=== PATIENT | female | born 1940 | race Caucasian/White ===

== ENCOUNTER → 2019-08-11 | Outpatient (CLI) | payer MEDICARE, OTHER ==
[~2019-08-11] MED LIST: ALPRAZOLAM0.25 MG PO; AMBIEN10 MG PO; BETAPACE AF80 MG PO; CRESTOR20 MG PO; LATANOPROST2.5 ML PO; LOSARTAN-HCTZ1 EAC1 PO; MAGNESIUM250 M1 PO; OS-CAL ULTRA T1 EACH PO; PAROXETINE HCL20 MG PO; PREMARIN0.9 MG PO; REQUIP3 MG PO; XARELTO20 MG PO; [UNRECOGNIZED DRUG - OTHER] PO
--- NOTE | 2019-08-11 13:49 | Diagnostic Imaging Report ---
EXAMINATION: CHEST 2 VIEWS INDICATION: Hypertension, CHF COMPARISON: None FINDINGS: LINES/TUBES:Left chest pacer. LUNGS:The lungs are well-inflated. No focal consolidation or pulmonary edema. PLEURA:No pleural effusion or pneumothorax. MEDIASTINUM:The cardiomediastinal silhouette appears normal in size and shape. BONES/SOFT TISSUES:No acute osseous injury. Partially visualized left shoulder arthroplasty hardware. ABDOMEN:No free air under the diaphragm. IMPRESSION: No focal pneumonia or pulmonary edema. Signed by: Patricia Toro MD on 08/11/2019 1:45 PM
== END ==
LOC: RAD 13:05
PROVIDERS: ATTEND Internal Medicine Cardiovascular Disease
DX: I11.0 Hypertensive heart disease with heart failure (principal); J44.1 Chronic obstructive pulmonary disease with (acute) exacerbation; Z95.0 Presence of cardiac pacemaker
CPT/HCPCS: 71046

== ENCOUNTER 2020-03-04 13:22 | Inpatient (IN) | payer MEDICARE, OTHER ==
[~2020-03-04] VITALS: Ht 172.7 cm; Wt 83.9 kg
[2020-03-04] MEDS ORDERED: SODIUM CHLORIDE 0.9% 1000ML 1,000 ML IV STA (13:24)
--- NOTE | 2020-03-04 13:32 | Emergency Department Note ---
History of Present Illnes History of Present Illness Chief Complaint: Abdominal Complaints History of Present Illness This is a 80 year old female arrived to the ED with diarrhea for several days. Patient denies any nausea or vomiting, no abdominal pain. Patient denies being on antibiotics recently. 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 Any updates have been documented here. Past Medical History Recent Fever: No Clinical Suspicion of Infectio: No New/Unexplained Change in Ment: No Past Medical History: Hypertension, CHF, A-Fib, Migraines, Anxiety, Depression, Hyperlipedemia Other Medical History: PACEMAKER IBS HEARING LOSS Past Surgical History: Pacer/AICD, Knee Replacement Other Surgery: PACEMAKER LEFT SHOULDER SURGERY KNEE SURGERY Social History Smoking Cessation: Never Smoker Alcohol Use: None Any Illegal Drug Use: No TB Exposure/Symptoms: No Physically hurt or threatened: No Other Last Tetanus: UTD Review of Systems Review of Systems Constitutional: Reports no symptoms EENTM: Reports no symptoms Cardiovascular: Reports no symptoms Respiratory: Reports no symptoms Gastrointestinal: Reports no symptoms, Reports as per HPI, Reports diarrhea Genitourinary: Reports no symptoms Musculoskeletal: Reports no symptoms Integumentary: Reports no symptoms Neurological: Reports no symptoms Psychological: Reports no symptoms Endocrine: Reports no symptoms Hematological/Lymphatic: Reports no symptoms Physical Exam Related Data Allergies: Coded Allergies: No Known Drug Allergies (Verified Allergy, Unknown, 02/26/09) Triage Vital Signs Vital Signs Date Time Temp Pulse Resp B/P (MAP) Pulse Ox O2 Delivery O2 Flow Rate FiO2 03/04/20 13:23 63 14 157/71 100 Room Air Vital signs reviewed: Yes Physical Exam CONSTITUTIONAL Constitutional: Present well-developed, Present well-nourished HENT HENT: Present normocephalic, Present atraumatic, Present oropharynx clear/moist, Present nose normal HENT L/R: Present left ext ear normal, Present right ext ear normal EYES Eyes: Reports PERRL, Reports conjunctivae normal NECK Neck: Present ROM normal PULMONARY Pulmonary: Present effort normal, Present breath sounds normal CARDIOVASCULAR Cardiovascular: Present regular rhythm, Present heart sounds normal, Present capillary refill normal, Present normal rate GASTROINTESTINAL Abdominal: Present soft, Present nontender, Present bowel sounds normal GENITOURINARY Genitourinary: Present exam deferred SKIN Skin: Present warm, Present dry MUSCULOSKELETAL Musculoskeletal: Present ROM normal NEUROLOGICAL Neurological: Present alert, Present oriented x 3, Present no gross motor or sensory deficits PSYCHOLOGICAL Psychological: Present mood/affect normal, Present judgement normal Results Laboratory Lab results reviewed: Yes Laboratory comments Severe Sepsis Time: 1551 Colitis 1. Source (time: 1551 ) Colitis on CT AP 2. SIRS (time: 1353 ) WBC 20k 3. Organ Dysfunction (time: 1438) Cr 2.07 Interventions: Blood cultures collected Lactic acid collected Broad Spectrum antibiotics Zosyn given Lactic acid #1: 1.5 Lactic acid #2: not indicated Imaging Imaging results reviewed: Yes Impressions IMPRESSION: Wall thickening and adjacent inflammatory change identified involving the long segment of descending and sigmoid colon. Findings are concerning for a colitis of likely infectious etiology. No evidence for bowel obstruction, perforation, or abscess formation. Signed by: Dr. Lino Reddy MD on 03/04/2020 3:51 PM Procedures 12 Lead ECG Interpretation ECG Interpretation : ECG: ECG 1 Prior ECG tracings: reviewed Rhythm: paced Critical Care Time Total Critical Care Time (min): 35 Critical care time exclusive o: separately billable procedures Critcal care necessary due to: sepsis Assessment & Plan Medical Decision Making MDM 80-year-old female arrives to the ED with complaints of diarrhea, WBC Count elevated, CT scan consistent with colitis. Patient got 1 dose of Zosyn admitted to the ED for IV antibiotics, fluid resuscitation and GI consult. Assessment & Plan Final Impression: (1) Severe sepsis (2) Colitis Depart Disposition: ADMITTED Last Vital Signs Date Time Temp Pulse Resp B/P (MAP) Pulse Ox O2 Delivery O2 Flow Rate FiO2 03/04/20 13:23 63 14 157/71 100 Room Air Home Meds Reported Medications Ca Carbonate/Vit C/Vit D3/E/Mn (OS-ERIN ULTRA TABLET) 1 Each Tablet, 600 MG PO DAILY 06/28/13 [[facility]] No Conflict Check, 1 PO DAILY 06/28/13 Estrogens, Conjugated (PREMARIN) 0.9 Mg Tablet, 0.9 MG PO DAILY 06/28/13 Alprazolam (ALPRAZOLAM) 0.25 Mg Tablet, 0.25 MG PO PRN 06/28/13 Paroxetine Hcl (PAROXETINE HCL) 20 Mg Tablet, 20 MG PO QOD 06/28/13 Zolpidem Tartrate (AMBIEN) 10 Mg Tablet, 10 MG PO QHS 06/28/13 Magnesium (MAGNESIUM) 250 Mg Tablet, 250 MG PO DAILY 06/28/13 Rivaroxaban (XARELTO) 20 Mg Tablet, 20 MG PO QHS 06/28/13 Sotalol Hcl (BETAPACE AF) 80 Mg Tablet, 80 MG PO BID 06/28/13 Losartan/Hydrochlorothiazide (LOSARTAN-HCTZ 100-25 MG TAB) 1 Each Tablet, 100 MG PO DAILY 06/28/13 Ropinirole Hcl (REQUIP) 3 Mg Tablet, 3 MG PO QHS 06/28/13 Rosuvastatin Calcium (CRESTOR) 20 Mg Tablet, 20 MG PO 06/28/13 Latanoprost (LATANOPROST) 2.5 Ml Drops, 2.5 MG PO QHS 06/28/13 Medications in the ED Sodium Chloride 1,000 ml @ 150 mls/hr Q6H40M STAT IV ; Start 03/04/20 at 13:24; Stop 03/04/20 at 20:03 MARISSA GALEANA DO Mar 04, 2020 13:32
[2020-03-04 13:47] LABS: BASOPHILS # (AUTO) 0.1 (0.0-0.1); BASOPHILS % 0.3 % (0.0-1.0); EOSINOPHILS # (AUTO) 0.1 (0.0-0.4); EOSINOPHILS % 0.4 % (0.0-6.0); HEMATOCRIT 31.4 % (34.2-44.1); HEMOGLOBIN 10.5 g/dL (12.0-16.0); LYMPHOCYTES # (AUTO) 0.7 (1.0-3.2); LYMPHOCYTES % 3.6 % (18.0-39.1); MEAN CORPUSCULAR HEMOGLOBIN 28.5 pg (28-32); MEAN CORPUSCULAR HGB CONC 33.4 g/dL (31-35); MEAN CORPUSCULAR VOLUME 85.1 fL (81-99); MONOCYTES # (AUTO) 0.9 (0.2-0.8); MONOCYTES % 4.6 % (4.4-11.3); NEUTROPHILS # (AUTO) 18.1 (2.1-6.9); NEUTROPHILS % 90.3 % (38.7-80.0); PLATELET COUNT 268 x10e3/uL (140-360); RED BLOOD COUNT 3.69 x10e6/uL (3.6-5.1); RED CELL DISTRIBUTION WIDTH 17.3 % (11.7-14.4)
[2020-03-04] MEDS ORDERED: PIPER-TAZ 3.375 GM 50 ML IV STA (14:06)
[2020-03-04 14:25] LABS: ALBUMIN 2.4 g/dL (3.5-5.0); ALBUMIN/GLOBULIN RATIO 0.5 (0.8-2.0); ANION GAP 20.2 mmol/L (8-16); CALCIUM 8.7 mg/dL (8.4-10.2); CREATININE, SERUM 2.07 mg/dL (0.57-1.11); POTASSIUM 3.2 mmol/L (3.5-5.1)
[2020-03-04 14:33] LABS: CREATINE KINASE MB 2.3 ng/mL (0-5.0)
[2020-03-04 14:51] LABS: BILIRUBIN,URINE NEGATIVE (NEGATIVE); CLARITY,URINE SL CLOUDY (CLEAR); COLOR,URINE STRAW (YELLOW); KETONES,URINE NEGATIVE (NEGATIVE); LEUKOCYTE ESTERASE ,URINE NEGATIVE (NEGATIVE); NITRITE,URINE NEGATIVE (NEGATIVE); PROTEIN,URINE DIPSTICK NEGATIVE (NEGATIVE); URINE UROBILINOGEN 0.2 mg/dL (0.2 - 1)
[2020-03-04 15:10] LABS: BACTERIA,URINE FEW /HPF; RBC,URINE 0-5 /HPF (0-5)
[2020-03-04 15:11] LABS: AMORPHOUS SEDIMENT,URINE MODERATE (FEW)
--- NOTE | 2020-03-04 15:43 | Diagnostic Imaging Report ---
EXAM: CHEST SINGLE (PORTABLE) DATE: 03/04/2020 3:09 PM INDICATION: Abdominal pain COMPARISON: 08/11/2019 FINDINGS: Left-sided pacing device identified in stable position. The trachea is midline. There is minimal left basilar opacity suggestive of atelectasis. The lungs are otherwise expanded without evidence for focal consolidation, pneumothorax, or significant pleural effusion. The cardiomediastinal silhouette is stable in appearance. Partially visualized left shoulder arthroplasty hardware again noted. No acute osseous abnormality is identified. IMPRESSION: No acute cardio prominent process identified. Signed by: Dr. Lino Reddy MD on 03/04/2020 3:40 PM
--- NOTE | 2020-03-04 15:54 | Diagnostic Imaging Report ---
CT of the abdomen and pelvis, without contrast. History: Abdominal pain, diarrhea. Comparison: None available. Technique: Multidetector CT scanning of the abdomen and pelvis was performed from the level of the lung bases to the inferior pubic rami without the contrast material. Coronal and sagittal multiplanar reformations were obtained. RADIATION DOSE: Total DLP: 723.32 mGy*cm Dose modulation, iterative reconstruction, and/or weight based adjustment of the mA/kV was utilized to reduce the radiation dose to as low as reasonably achievable. FINDINGS: Partially visualized pacing leads noted. The visualized intrathoracic contents are otherwise grossly unremarkable. The liver is normal in size and attenuation on this noncontrast enhanced examination. Granulomatous calcifications noted within the hepatic dome. The gallbladder is unremarkable. There is no biliary ductal dilatation. The stomach, spleen, pancreas, and bilateral adrenal glands demonstrate unremarkable noncontrast appearance. Incidentally noted is a splenule adjacent to the spleen. The kidneys are normal in size and location with bilateral areas of cortical scarring present. There is no evidence for nephrolithiasis or hydronephrosis. No ureteral stone or dilatation is appreciated. Phleboliths are noted within the pelvis. The partially distended urinary bladder demonstrates no significant abnormalities. The uterus is surgically absent. No abnormal adnexal masses are identified. The abdominal aorta is normal course and caliber with mild/moderate atherosclerotic calcifications. The IVC is normal in caliber. Please note evaluation the bowel is limited without the use of enteric contrast material. There is a long segment of wall thickening and adjacent fat stranding involving the descending and sigmoid colon. The visualized loops of small bowel and remaining large bowel demonstrate no evidence for obstruction. The appendix is not definitively visualized but there is no evidence for inflammation within its expected location the right lower quadrant. There is no ascites or intraperitoneal free air. No abnormally enlarged lymph nodes are identified within the abdomen or pelvis. There are multilevel degenerative changes of the lumbar spine, most prominent at L4-L5. There is no evidence for acute fracture or destructive process. The extraperitoneal soft tissues are unremarkable. IMPRESSION: Wall thickening and adjacent inflammatory change identified involving the long segment of descending and sigmoid colon. Findings are concerning for a colitis of likely infectious etiology. No evidence for bowel obstruction, perforation, or abscess formation. Signed by: Dr. Lino Reddy MD on 03/04/2020 3:51 PM
[2020-03-04 16:22] LABS: ABG HCO3 22 mmol/L (22-26); ABG PCO2 28 mmHg (35-45); ABG PH 7.51 (7.35-7.45); ABG PO2 90 mmHg (80-105)
--- NOTE | 2020-03-04 18:46 | NUR ---
Received patient from ER. Respiration even and unlabored without SOB. Call light in reach. Denies pain at this time.
--- NOTE | 2020-03-04 19:00 | NUR ---
Received patient from day nurse, patient is stable, fall and safety precautions maintained at this time: bed in lowest position and locked, needed items beside bed and call earl placed close to patient, patient instructed to use it to call nurses for any assistance needed, patient verbalized understanding. Patient is currently stable will continue to monitor.
[2020-03-04 19:52] VITALS: BP 124/82
[2020-03-04 20:00] VITALS: BP 120/58
[2020-03-04] MEDS ORDERED: SODIUM CHLORIDE 0.9% 250ML 250 ML ONE (20:50)
[2020-03-04 21:00] VITALS: BP 120/58
[2020-03-04] MEDS: PIPER-TAZ 3.375 GM 50 ML IV SCH (21:13)
[2020-03-04] MEDS ORDERED: ROPINIROLE HCL 3 MG PO SCH (21:15)
[2020-03-04] MEDS ORDERED: HYDRALAZINE HCL 20 MG/ML VIAL IV PRN (21:15)
[2020-03-04] MEDS ORDERED: ONDANSETRON HCL INJ 2MG/ML 2ML 2 MG/ML VIAL IV PRN (21:15)
[2020-03-04] MEDS: ROPINIROLE HCL 1 MG TAB PO SCH (21:24)
[2020-03-04] MEDS ORDERED: POTASSIUM CHLORIDE 20 MEQ TAB CR PO ONE (21:45)
--- NOTE | 2020-03-04 22:24 | NUR ---
Consult to Dr. Melchor made to office, spoke to Dr Melchor.
[2020-03-04] MEDS ORDERED: METRONIDAZOLE 500MG/NS 100ML 100 ML IV STA (23:29)
[2020-03-05] VITALS (8 sets, daily range): BP systolic 81–108; BP diastolic 41–60
[2020-03-05 00:05] LABS: FERRITIN 348.16 ng/mL (4.63-204.00)
[2020-03-05 05:14] LABS: BASOPHILS # (AUTO) 0.1 (0.0-0.1); BASOPHILS % 0.4 % (0.0-1.0); EOSINOPHILS # (AUTO) 0.2 (0.0-0.4); HEMATOCRIT 28.6 % (34.2-44.1); HEMOGLOBIN 9.4 g/dL (12.0-16.0); LYMPHOCYTES # (AUTO) 0.8 (1.0-3.2); LYMPHOCYTES % 5.2 % (18.0-39.1); MEAN CORPUSCULAR HEMOGLOBIN 28.9 pg (28-32); MEAN CORPUSCULAR HGB CONC 32.9 g/dL (31-35); MONOCYTES % 6.1 % (4.4-11.3); NEUTROPHILS # (AUTO) 13.5 (2.1-6.9); NEUTROPHILS % 86.3 % (38.7-80.0); PLATELET COUNT 222 x10e3/uL (140-360); RED BLOOD COUNT 3.25 x10e6/uL (3.6-5.1); RED CELL DISTRIBUTION WIDTH 17.7 % (11.7-14.4)
[2020-03-05 05:32] LABS: ALBUMIN/GLOBULIN RATIO 0.5 (0.8-2.0); ANION GAP 13.3 mmol/L (8-16); CALCIUM 8.1 mg/dL (8.4-10.2); CREATININE, SERUM 1.85 mg/dL (0.57-1.11); POTASSIUM 3.3 mmol/L (3.5-5.1)
[2020-03-05] MEDS: METRONIDAZOLE 500MG/NS 100ML 100 ML IV SCH ×3 (06:14→21:56)
[2020-03-05] MEDS: PIPER-TAZ 3.375 GM 50 ML IV SCH ×3 (06:45→22:58)
--- NOTE | 2020-03-05 06:45 | NUR ---
patient endorsed to next shift for continuity of care.
--- NOTE | 2020-03-05 07:48 | History and Physical ---
CHIEF COMPLAINT: The patient is admitted with abdominal pain and diarrhea. HISTORY OF PRESENTING ILLNESS: Ms. Dinora Capps is a 80-year-old female with history of hypertension, congestive heart failure, depression, hyperlipidemia, and anxiety, was in her usual state of health until about 3 days prior to admission, the patient started to have some abdominal pain, associated with diarrhea. Called the office, was asked to go to the ER and/or to come to the office. The patient did not want to, was given some loperamide for diarrhea control. The patient came to the hospital and was admitted to the hospital for left-sided colitis and was started on antibiotic. PAST MEDICAL HISTORY: History of hypertension, history of congestive heart failure, history of atrial fibrillation, history of chronic migraines, history of depression, history of chronic low back pain, history of hyperlipidemia, history of irritable bowel syndrome. PAST SURGICAL HISTORY: The patient with knee replacement, also history of AICD and pacemaker placement. The patient also has had left shoulder surgery. SOCIAL HISTORY: No EtOH. No drug abuse. Lives with daughter, who is a primary transportation specialist. No history of smoking either. ALLERGIES: NO DRUG ALLERGIES NOTED. REVIEW OF SYSTEMS: Negative for chest pain. No shortness of breath. No nausea or vomiting. Diarrhea. No constipation. No rectal bleeding. No melena. No hematochezia either. No diplopia. No blurry vision. Positive for dryness in the mouth and also some abdominal pain and cramps. MEDICATIONS: At home, she takes alprazolam 0.25 mg as needed, Os-Devon D, estrogen conjugated Premarin 0.9 mg, latanoprost, losartan and hydrochlorothiazide 100/12.5, magnesium 250 mg, paroxetine 20 mg, Xarelto 20 mg at bedtime, ropinirole 3 mg, rosuvastatin 20 mg, sotalol 80 mg, zolpidem 10 mg at nighttime. PHYSICAL EXAMINATION: VITAL SIGNS: Temperature is 94.6, pulse of 62, respirations of 20, blood pressure is 108/52. HEENT: Normocephalic, atraumatic. Pupils are reactive. CVS: S1 and S2 normal. Regular rate and rhythm. ABDOMEN: Tender in the left lower quadrant. EXTREMITIES: No clubbing, no cyanosis, no edema. LABORATORY VALUES: On initial evaluation, the patient's sodium was 127, potassium 3.2, BUN of 49, creatinine of 2.07, glucose is 145. Lipase is 302. Hematologies; white count is 20,000 down to 15,000 today, hemoglobin 10.5, hematocrit of 31.4, neutrophil count of 90.3, retic 1.9. Serology; coronavirus is pending. Urine, moderate amount of amorphous sediments. ASSESSMENT: Ms. Dinora Capps with: 1. Possible infectious colitis. 2. History of congestive heart failure. 3. Hyperlipidemia. 4. Hypertension. 5. AICD placement. 6. History of atrial fibrillation. 7. Bucmt-lc-igteuda renal failure. PLAN: Continue with current management. The patient is on metronidazole and Zosyn. We will continue the same. Medications will be restarted. We will hold off on her blood pressure medication, especially her diuretic given her acute renal failure. Continue medications. The patient is also having hyponatremia, for which we will keep an eye and correct. Discontinue the diuretics. Further recommendation per clinical course. We will continue to monitor the patient. The patient's expected length of stay is 1 to 2 days. MD TIP ZelayaJ/MODL /[id number]
[2020-03-05] MEDS ORDERED: [UNRECOGNIZED DRUG - OTHER] PO SCH (09:00)
[2020-03-05] MEDS ORDERED: HYDROCHLOROTHIAZIDE 25 MG TAB PO SCH (09:00)
[2020-03-05] MEDS: SOTALOL HCL 80 MG TAB PO SCH ×2 (09:00→17:00)
[2020-03-05] MEDS ORDERED: LOSARTAN PO SCH (09:00)
[2020-03-05] MEDS ORDERED: LOSARTAN POTASSIUM 100 MG TAB PO SCH (09:00)
[2020-03-05] MEDS ORDERED: HYDROCHLOROTHIAZIDE PO SCH (09:00)
--- NOTE | 2020-03-05 09:20 | NUR ---
Talked to patient's daughter she mentioned about they scheduled some nerve conduction Test with an outpatient Neurologist couldnt go there, Patient has weakness on her Both arms, Notified Dr Melchor, new order recvd for CAT C Spine
[2020-03-05] MEDS: RIVAROXABAN 20 MG TABLET PO SCH (09:22)
[2020-03-05] MEDS: IRON SUCROSE 100 MG in SODIUM CHLORIDE 0.9% 100 ML 100 ML IV SCH (09:22)
--- NOTE | 2020-03-05 13:05 | Diagnostic Imaging Report ---
CT CERVICAL SPINE WO HISTORY: Bilateral arm weakness COMPARISON: None. TECHNIQUE: CT of the cervical spine without contrast. Sagittal and coronal reformations were created. One or more of the following dose reduction techniques were used: Automated exposure control, adjustment of the mA and/or kV according to patient size, and/or utilization of iterative reconstruction technique. FINDINGS: Mild bone demineralization and shoulder streak artifacts slightly limit evaluation. Cervical lordosis is straightened. There is no significant scoliosis. No definite acute fracture or compression deformity is seen. The craniocervical junction is intact. No gross spinal canal masses are seen. The paravertebral and paraspinal soft tissues are unremarkable. There are advanced spondylotic changes from C4-C5 to C6-C7. Mild to moderate atlantoaxial arthrosis is present as well. C2-C3: Mild right foraminal stenosis due to uncovertebral and facet arthrosis. No gross canal or left foraminal stenosis. Prominent right C2-C3 facet arthrosis is associated with mild periarticular erosion. C3-C4: Grade 1 anterolisthesis of C3 on C4 is due to prominent right C3-C4 facet arthrosis. At least mild canal stenosis due to uncovered disc bulge. Mild right foraminal stenosis due to uncovertebral and facet arthrosis. No significant left foraminal stenosis. C4-C5: At least mild canal stenosis due to posterior disc osteophyte complex. Mild right and moderate to severe left foraminal stenoses due to uncovertebral and facet arthrosis. C5-C6: At least mild canal stenosis due to posterior disc osteophyte complex. Moderate to severe right and mild to moderate left foraminal stenoses due to uncovertebral and facet arthrosis. C6-C7: No gross osseous canal stenosis. Mild right and mild to moderate left foraminal stenoses due to uncovertebral and facet arthrosis. C7-T1: Subtle minimal grade 1 anterolisthesis of C7 on T1 due to facet arthrosis. No gross osseous canal stenosis. No significant foraminal stenosis. Mild scarring is seen in the lung apices. Mild bilateral carotid bulb calcified plaque is present, right greater than left. IMPRESSION: 1. No acute osseous abnormalities. 2. Multilevel advanced lower cervical spondylosis. 3. Prominent right-sided facet arthrosis at C2-C3 and C3-C4 with grade 1 anterolisthesis of C3 on C4. 4. At least mild degenerative canal stenosis from C3-C4 to C5-C6. 5. Multilevel degenerative foraminal stenoses - moderate to severe on the left at C4-C5; moderate to severe on the right and mild to moderate left at C5-C6; mild to moderate on the left at C6-C7. Signed by: Dr. Paul Hernandez M.D. on 03/05/2020 1:01 PM
--- NOTE | 2020-03-05 18:55 | NUR ---
Received patient from day nurse, patient is alert and oriented x3, safety and fall precaution maintained as per hospital protocol: bed in lowest position and locked, needed items beside bed and call earl placed close to patient, patient instructed to use it to call nurses for any assistance needed, patient verbalized understanding. patient is currently stable, will continue to monitor.
[2020-03-05] MEDS: ROPINIROLE HCL 1 MG TAB PO SCH (21:56)
[2020-03-06 00:52] VITALS: BP 99/44
[2020-03-06 05:01] VITALS: BP 106/46
[2020-03-06 05:14] LABS: BASOPHILS % 0.3 % (0.0-1.0); EOSINOPHILS # (AUTO) 0.2 (0.0-0.4); EOSINOPHILS % 2.4 % (0.0-6.0); HEMATOCRIT 29.2 % (34.2-44.1); HEMOGLOBIN 9.4 g/dL (12.0-16.0); LYMPHOCYTES # (AUTO) 0.7 (1.0-3.2); MEAN CORPUSCULAR HEMOGLOBIN 28.1 pg (28-32); MEAN CORPUSCULAR HGB CONC 32.2 g/dL (31-35); MEAN CORPUSCULAR VOLUME 87.4 fL (81-99); MONOCYTES # (AUTO) 0.7 (0.2-0.8); MONOCYTES % 7.5 % (4.4-11.3); NEUTROPHILS # (AUTO) 8.1 (2.1-6.9); NEUTROPHILS % 82.2 % (38.7-80.0); PLATELET COUNT 223 x10e3/uL (140-360); RED BLOOD COUNT 3.34 x10e6/uL (3.6-5.1); RED CELL DISTRIBUTION WIDTH 17.9 % (11.7-14.4)
[2020-03-06 05:36] LABS: ALBUMIN 1.9 g/dL (3.5-5.0); ALBUMIN/GLOBULIN RATIO 0.4 (0.8-2.0); ANION GAP 17.9 mmol/L (8-16); CALCIUM 8.4 mg/dL (8.4-10.2); CREATININE, SERUM 2.33 mg/dL (0.57-1.11)
[2020-03-06 05:38] LABS: POTASSIUM 2.9 mmol/L (3.5-5.1)
--- NOTE | 2020-03-06 05:39 | NUR ---
critical potassium 2.9.....Dr. Melchor office called, spoke to Anabelle, awaiting call back.
[2020-03-06] MEDS ORDERED: POTASSIUM CHLORIDE 10MEQ EA PO SCH (05:45)
[2020-03-06] MEDS: METRONIDAZOLE 500MG/NS 100ML 100 ML IV SCH ×3 (05:48→21:42)
[2020-03-06] MEDS: PIPER-TAZ 3.375 GM 50 ML IV SCH ×3 (06:12→22:57)
--- NOTE | 2020-03-06 06:45 | NUR ---
Patient endorsed to next shift for continuity of care.
[2020-03-06] MEDS ORDERED: POTASSIUM CHLORIDE 10MEQ EA PO ONE (07:45)
[2020-03-06 08:03] VITALS: BP 94/48
[2020-03-06] MEDS: RIVAROXABAN 20 MG TABLET PO SCH (08:56)
[2020-03-06 08:58] VITALS: BP 94/48
[2020-03-06] MEDS: SOTALOL HCL 80 MG TAB PO SCH ×2 (09:00→17:00)
[2020-03-06 09:21] LABS: LYMPHOCYTES % (MANUAL) 3 % (19-48); MONOCYTES % (MANUAL) 7 % (3.4-9.0)
[2020-03-06 09:22] LABS: EOSINOPHILS % (MANUAL) 2 % (0-7)
[2020-03-06 09:23] LABS: BAND NEUTROPHILS % (MANUAL) 2 %; NEUTROPHILS % (MANUAL) 86 % (40-74); RBC MORPHOLOGY COMMENT ABNORMAL
[2020-03-06] MEDS: IRON SUCROSE 100 MG in SODIUM CHLORIDE 0.9% 100 ML 100 ML IV SCH (10:12)
[2020-03-06 16:16] VITALS: BP 111/49
[2020-03-06 19:58] VITALS: BP 104/52
[2020-03-06] MEDS: ROPINIROLE HCL 1 MG TAB PO SCH (20:23)
--- NOTE | 2020-03-06 22:00 | NUR ---
MD Cristina ORTEGADAD IN TO SEE PATIENT. NEW ORDERS RECEIVED AND IMPLEMENTED.
[2020-03-06] MEDS: VANCOMYCIN 250MG/5ML ORAL SOLN PO SCH (22:57)
[2020-03-06] MEDS: DICYCLOMINE HCL 10 MG CAP PO SCH (22:57)
[2020-03-07] VITALS (8 sets, daily range): BP systolic 100–131; BP diastolic 46–57
[2020-03-07] MEDS: VANCOMYCIN 250MG/5ML ORAL SOLN PO SCH ×4 (05:45→23:57)
[2020-03-07] MEDS: PIPER-TAZ 3.375 GM 50 ML IV SCH ×3 (05:45→22:59)
[2020-03-07] MEDS: METRONIDAZOLE 500MG/NS 100ML 100 ML IV SCH ×3 (06:35→21:47)
--- NOTE | 2020-03-07 08:04 | Progress Note ---
DATE: SUBJECTIVE: The patient states her diarrhea is slightly better, but still present, but otherwise no new complaints still. REVIEW OF SYSTEMS: She complains of cervical neck pain with numbness going down her extremities. I reviewed the MRI with the patient. OBJECTIVE: VITAL SIGNS: Temperature 97.7, pulse 60, blood pressure 104/52, sats 98%. GENERAL: No apparent distress, lying in bed. LUNGS: Clear to auscultation bilaterally. NECK: Supple with full range of motion. CARDIOVASCULAR: Regular rate and rhythm. ABDOMEN: Good bowel sounds. Soft, nontender, nondistended. No peritoneal signs. EXTREMITIES: No clubbing or cyanosis. NEUROLOGIC: She moves all extremities x4 with 5/5 strength in the bilateral upper extremities. ASSESSMENT AND PLAN: 1. Clostridium difficile colitis. We will continue with current care with antibiotics and Dr. Izaiah Ridley is seeing the patient. 2. Anemia. We will check a CBC. 3. Hypokalemia. We will check a CMP. 4. Chronic kidney disease stage 3. We will also check CMP. 5. Hypertension. Continue with current care and monitoring. 6. Cervical neck disease. Reviewed and showing a lot of stenosis and wear and care of her neck that as an outpatient, she may want to get this evaluated by a neurosurgeon and I will defer that with the patient and her primary care physician. Please see hospital chart for full details. MD MAREK Swan/MARCIA /[id number]
[2020-03-07] MEDS: IRON SUCROSE 100 MG in SODIUM CHLORIDE 0.9% 100 ML 100 ML IV SCH (08:22)
[2020-03-07] MEDS: RIVAROXABAN 20 MG TABLET PO SCH (08:22)
[2020-03-07] MEDS: DICYCLOMINE HCL 10 MG CAP PO SCH ×3 (08:22→21:47)
[2020-03-07] MEDS: SOTALOL HCL 80 MG TAB PO SCH ×2 (09:00→17:11)
--- NOTE | 2020-03-07 19:00 | NUR ---
RECEIVED PATIENT IN BEDSIDE SHIFT REPORT. PATIENT RESTING IN BED AT THIS TIME. NO PAIN REPORTED. NO S&S OF DISTRESS NOTED. BED LOCKED IN LOWEST POSITION, SIDE RAILS UPX2, CALL LIGHT IN REACH.
[2020-03-07] MEDS: ROPINIROLE HCL 1 MG TAB PO SCH (21:47)
[2020-03-08] VITALS: BP 114/47
[2020-03-08] MEDS: ACETAMINOPHEN 325 MG TAB PO PRN ×3 (00:47→16:17)
[2020-03-08] MEDS: ALPRAZOLAM 0.25 MG TAB PO PRN (00:47)
[2020-03-08 04:00] VITALS: BP 120/57
[2020-03-08 05:29] LABS: BASOPHILS # (AUTO) 0.1 (0.0-0.1); BASOPHILS % 0.5 % (0.0-1.0); EOSINOPHILS # (AUTO) 0.1 (0.0-0.4); EOSINOPHILS % 1.3 % (0.0-6.0); HEMATOCRIT 29.4 % (34.2-44.1); HEMOGLOBIN 9.7 g/dL (12.0-16.0); LYMPHOCYTES # (AUTO) 0.8 (1.0-3.2); LYMPHOCYTES % 7.8 % (18.0-39.1); MEAN CORPUSCULAR HEMOGLOBIN 29.8 pg (28-32); MEAN CORPUSCULAR VOLUME 90.5 fL (81-99); MONOCYTES # (AUTO) 0.8 (0.2-0.8); MONOCYTES % 7.6 % (4.4-11.3); NEUTROPHILS # (AUTO) 8.3 (2.1-6.9); NEUTROPHILS % 82.3 % (38.7-80.0); PLATELET COUNT 238 x10e3/uL (140-360); RED BLOOD COUNT 3.25 x10e6/uL (3.6-5.1); RED CELL DISTRIBUTION WIDTH 18.4 % (11.7-14.4)
[2020-03-08] MEDS: PIPER-TAZ 3.375 GM 50 ML IV SCH (05:56)
[2020-03-08 05:59] LABS: ALBUMIN/GLOBULIN RATIO 0.5 (0.8-2.0); ANION GAP 14.5 mmol/L (8-16); CALCIUM 8.9 mg/dL (8.4-10.2); CREATININE, SERUM 1.83 mg/dL (0.57-1.11); POTASSIUM 3.5 mmol/L (3.5-5.1)
[2020-03-08] MEDS: METRONIDAZOLE 500MG/NS 100ML 100 ML IV SCH (06:32)
[2020-03-08] MEDS: VANCOMYCIN 250MG/5ML ORAL SOLN PO SCH ×3 (06:32→17:03)
--- NOTE | 2020-03-08 07:00 | NUR ---
RECEIVED BEDSIDE SHIFT REPORT FROM OFF GOING NIGHT NURSE. PATIENT IN STABLE CONDITION, NO S/S OF DISTRESS NOTED. TELEMETRY APPLIED. IV SITES ASYMPTOMATIC AND PATENT, TRANSPARENT DRESSING C/D/I. BED IN LOWEST POSITION AND LOCKED SIDE RAILS X2. CALL LIGHT WITHIN REACH.
--- NOTE | 2020-03-08 07:23 | Progress Note ---
DATE: SUBJECTIVE: The patient came in with insensible diarrhea. The patient is found to be C diff positive. The patient also had numbness in the upper extremities, for which a CT was done, showed lumbar discogenic disease. The patient is currently having about 1 to 2 bowel movements. Today in the morning, she had one diarrheal movement. MEDICATIONS: She is on vancomycin 500 mg q.6 hours p.o., piperacillin and metronidazole q.8 hours, dicyclomine 10 mg 3 times a day, and the patient is back on her Xarelto once a day and her regular medications. OBJECTIVE: VITAL SIGNS: Temperature is 97, respirations of 20, blood pressure is 120/57. HEENT: Normocephalic and atraumatic. Pupils are reactive. CVS: S1 and S2 are normal. Regular rate and rhythm. ABDOMEN: Soft, nontender. EXTREMITIES: No clubbing, no cyanosis, no edema. LABORATORY VALUES: White count is 10.10, hemoglobin of 9.7, hematocrit of 29.4. Chemistries show sodium of 137, potassium 3.5. Coronavirus not detected and positive for C diff as mentioned above. Also, the patient's blood culture grew some Streptococcus viridans. ASSESSMENT: Ms. Dinora Capps with: 1. Clostridium difficile colitis. Continue vancomycin at this time p.o., might be we will stop the piperacillin and metronidazole. 2. Anemia. Continue monitoring her CBC. 3. Hypokalemia, replaced and better. 4. Chronic kidney disease, stable and better. 5. Hypertension. Continue current medication. 6. Cervical radiculopathy. She will probably be evaluated by Neurosurgery as an outpatient and also probably an EMG to evaluate the peripheral nerves. Further recommendation per clinical course. MD TIP ZelayaJ/MODL /[id number]
[2020-03-08 08:07] VITALS: BP 132/55
[2020-03-08] MEDS: IRON SUCROSE 100 MG in SODIUM CHLORIDE 0.9% 100 ML 100 ML IV SCH (08:52)
[2020-03-08] MEDS: RIVAROXABAN 20 MG TABLET PO SCH (08:53)
[2020-03-08] MEDS: DICYCLOMINE HCL 10 MG CAP PO SCH ×3 (08:53→20:10)
[2020-03-08] MEDS: SOTALOL HCL 80 MG TAB PO SCH ×2 (08:53→16:16)
[2020-03-08] MEDS ORDERED: POTASSIUM CHLORIDE 20 MEQ TAB CR PO SCH (11:00)
--- NOTE | 2020-03-08 19:18 | NUR ---
COMPLETED BEDSIDE SHIFT REPORT AND ROUNDING WITH ONCOMING NIGHT NURSE. PATIENT IN STABLE CONDITION, NO S/S OF DISTRESS NOTED. TELEMETRY APPLIED. IV SITES ASYMPTOMATIC AND PATENT, TRANSPARENT DRESSING C/D/I. BED IN LOWEST POSITION AND LOCKED, SIDE RAILS X2. CALL LIGHT WITHIN REACH.
[2020-03-08 20:00] VITALS: BP 135/67
[2020-03-08] MEDS: ROPINIROLE HCL 1 MG TAB PO SCH (20:10)
[2020-03-08 21:00] VITALS: BP 135/67
[2020-03-09] VITALS (8 sets, daily range): BP systolic 113–145; BP diastolic 72–78
[2020-03-09] MEDS: VANCOMYCIN 250MG/5ML ORAL SOLN PO SCH ×5 (00:09→23:45)
[2020-03-09] MEDS: ALPRAZOLAM 0.25 MG TAB PO PRN (00:09)
[2020-03-09] MEDS: ACETAMINOPHEN 325 MG TAB PO PRN ×2 (03:03→16:17)
[2020-03-09 07:22] LABS: BASOPHILS # (AUTO) 0.1 (0.0-0.1); BASOPHILS % 0.4 % (0.0-1.0); EOSINOPHILS # (AUTO) 0.3 (0.0-0.4); EOSINOPHILS % 2.1 % (0.0-6.0); HEMATOCRIT 32.7 % (34.2-44.1); HEMOGLOBIN 10.1 g/dL (12.0-16.0); LYMPHOCYTES % 7.7 % (18.0-39.1); MEAN CORPUSCULAR HGB CONC 30.9 g/dL (31-35); MEAN CORPUSCULAR VOLUME 90.6 fL (81-99); MONOCYTES # (AUTO) 0.8 (0.2-0.8); MONOCYTES % 6.6 % (4.4-11.3); NEUTROPHILS # (AUTO) 10.3 (2.1-6.9); NEUTROPHILS % 82.3 % (38.7-80.0); PLATELET COUNT 280 x10e3/uL (140-360); RED BLOOD COUNT 3.61 x10e6/uL (3.6-5.1); RED CELL DISTRIBUTION WIDTH 18.6 % (11.7-14.4)
--- NOTE | 2020-03-09 07:38 | Progress Note ---
DATE: SUBJECTIVE: The patient is here for C. diff colitis. The patient is currently on p.o. vancomycin. No chest pain. No shortness of breath. Did have five diarrheal movements yesterday. Continues to have abdominal pain. A CT has been ordered. OBJECTIVE: VITAL SIGNS: Temperature is 97.7, pulse of 62, respirations of 18, blood pressure is 143/74. HEENT: Normocephalic and atraumatic. Pupils are reactive. CVS: S1 and S2 normal. Regular rate and rhythm. ABDOMEN: Slightly distended, soft. EXTREMITIES: No clubbing, no cyanosis, no edema. LABORATORY STUDIES: White count is normalized to 10,000, yesterday, hemoglobin of 9.7, hematocrit of 29.4. Chemistries; sodium of 137, potassium 3.5, BUN of 41 and creatinine of 1.83. Serology for C. diff positive. Microbiology, Streptococcus viridans. ASSESSMENT: Ms. Dinora Capps with: 1. Clostridium difficile colitis. Continue on vancomycin. 2. Anemia. 3. Hyperkalemia. 4. Chronic kidney disease on an acute kidney injury. 5. Cervical radiculopathy. PLAN: Continue with vancomycin. The patient is scheduled for a CT scan today. We will follow up on that. White count will be repeated again since stopping the enteral antibiotics. Further recommendation per clinical course. We will continue to monitor the patient. MD TIP ZelayaJ/MODL /[id number]
[2020-03-09] MEDS: SOTALOL HCL 80 MG TAB PO SCH ×2 (08:17→16:17)
[2020-03-09] MEDS: RIVAROXABAN 20 MG TABLET PO SCH (08:17)
[2020-03-09] MEDS: DICYCLOMINE HCL 10 MG CAP PO SCH (08:17)
[2020-03-09] MEDS: IRON SUCROSE 100 MG in SODIUM CHLORIDE 0.9% 100 ML 100 ML IV SCH (08:26)
--- NOTE | 2020-03-09 11:23 | NUR ---
PT recommending inpatient rehab for pt. Left message for Dr. Melchor. Awaiting response.
[2020-03-09] MEDS ORDERED: ONDANSETRON HCL 4 MG ORAL DISINTEGRATING TAB PO PRN (11:30)
[2020-03-09] MEDS: DICYCLOMINE HCL 20 MG TAB PO SCH ×3 (12:01→23:45)
--- NOTE | 2020-03-09 14:30 | NUR ---
Received order for inpatient rehab eval. Spoke to pt and gave her choices of rehab facilities - [facility], [facility], and [facility]. Pt states she wants to go to the facility closest to her house. Pt signed choice letter for [facility]. Pt asked that CM call her daughter Vikki and update her. Choice letter placed in front of chart. CM called pt's daughter Vikki at [phone]. She states she wants to look up the other facilities prior to CM sending referral to [facility]. CM updated pt and pt agrees to wait until her daughter looks up the other facilities.
[2020-03-09] MEDS: ROPINIROLE HCL 1 MG TAB PO SCH (20:58)
[2020-03-10] VITALS (8 sets, daily range): BP systolic 101–130; BP diastolic 56–98
[2020-03-10] MEDS: ALPRAZOLAM 0.25 MG TAB PO PRN ×2 (00:07→21:04)
[2020-03-10] MEDS: ACETAMINOPHEN 325 MG TAB PO PRN ×2 (06:00→14:43)
[2020-03-10] MEDS: ALBUMIN 25% 12.5GM 0.25 GM/ML BTL IV SCH ×2 (06:15→14:15)
[2020-03-10] MEDS: VANCOMYCIN 250MG/5ML ORAL SOLN PO SCH ×3 (06:15→17:46)
[2020-03-10] MEDS: DICYCLOMINE HCL 20 MG TAB PO SCH ×3 (06:15→17:46)
--- NOTE | 2020-03-10 06:53 | Progress Note ---
DATE: SUBJECTIVE: The patient is a 80-year-old came in with C. difficile colitis. The patient is feeling better. Diarrhea is slowing down. The patient had 2 diarrheal movements. Abdominal pain still continues. Patient appears to be weak and tired. SNF consult has been done. The patient is to go to inpatient rehab when accepted. OBJECTIVE: VITAL SIGNS: Temperature is 97.5, afebrile, pulse of 73, respiration 18, blood pressure is 115/77. HEENT: Normocephalic, atraumatic. Pupils are reactive. CVS: S1 and S2 normal. Regular rate and rhythm. ABDOMEN: Slightly distended. LUNGS: Clear. EXTREMITIES: Positive for some wasting in hypothenar eminence and also in the lumbricals in the upper extremity secondary to possible stenosis. LABORATORY VALUES: Yesterday's white count is 12,000, hemoglobin is 10.1, hematocrit is 32.7. Chemistries; sodium 137, potassium 3.5. Serology C difficile is positive. IMAGING STUDIES: None done. CT scan initially done showed colitis. ASSESSMENT: Ms. Dinora Capps with Clostridium difficile colitis. Continue vancomycin 14 days in total. 1. Anemia. 2. Hypokalemia. 3. Chronic kidney disease, improving. 4. Cervical radiculopathy. PLAN: Continue the same medications. She has been taken off for IV antibiotics. Consult for SNF has been done. We will continue to monitor the patient and can be discharged when bed is available. MD ISMAEL Zelaya/KARISL /[phone]
--- NOTE | 2020-03-10 09:00 | NUR ---
Called pt's daughter Vikki at [phone] to follow up on choice regarding inpatient rehab. She states she discussed with her siblings and they want pt to go to [facility] in [place]. CM spoke to pt and pt agrees to [facility]. Choice letter signed. Copy to pt. Signed choice letter placed in front of chart. Referral faxed to [facility] at [phone] / . Nenita with [facility] was notified of referral.
[2020-03-10] MEDS: RIVAROXABAN 20 MG TABLET PO SCH (09:30)
[2020-03-10] MEDS: IRON SUCROSE 100 MG in SODIUM CHLORIDE 0.9% 100 ML 100 ML IV SCH (09:30)
[2020-03-10] MEDS: SOTALOL HCL 80 MG TAB PO SCH ×2 (09:30→17:46)
[2020-03-10] MEDS ORDERED: SODIUM CHLORIDE 0.9% 250ML 250 ML ONE (14:14)
--- NOTE | 2020-03-10 19:00 | NUR ---
RECEIVED PATIENT IN BEDSIDE SHIFT REPORT. PATIENT RESTING IN BED AT THIS TIME. NO S&S OF DISTRESS NOTED. NO PAIN REPORTED. BED LOCKED IN LOWEST POSITION, SIDE RAILS UPX2, CALL LIGHT IN REACH.
[2020-03-10] MEDS ORDERED: ALBUMIN 25% 12.5GM 0.25 GM/ML BTL IV SCH (20:00)
[2020-03-10] MEDS: ALBUMIN 25% 25GM 100ML 100 ML IV SCH ×2 (20:30→21:04)
[2020-03-10] MEDS: ROPINIROLE HCL 1 MG TAB PO SCH (20:30)
[2020-03-11] VITALS (8 sets, daily range): BP systolic 91–118; BP diastolic 50–74
[2020-03-11] MEDS: DICYCLOMINE HCL 20 MG TAB PO SCH ×5 (00:06→23:00)
[2020-03-11] MEDS: VANCOMYCIN 250MG/5ML ORAL SOLN PO SCH ×5 (00:06→23:00)
[2020-03-11] MEDS: ALBUMIN 25% 25GM 100ML 100 ML IV SCH ×3 (02:40→14:45)
[2020-03-11] MEDS: ACETAMINOPHEN 325 MG TAB PO PRN ×2 (04:36→21:50)
[2020-03-11 05:12] LABS: BASOPHILS # (AUTO) 0.1 (0.0-0.1); BASOPHILS % 0.6 % (0.0-1.0); EOSINOPHILS # (AUTO) 0.2 (0.0-0.4); EOSINOPHILS % 1.4 % (0.0-6.0); HEMOGLOBIN 8.4 g/dL (12.0-16.0); LYMPHOCYTES # (AUTO) 1.3 (1.0-3.2); MEAN CORPUSCULAR HGB CONC 31.1 g/dL (31-35); MEAN CORPUSCULAR VOLUME 93.1 fL (81-99); MONOCYTES # (AUTO) 0.6 (0.2-0.8); NEUTROPHILS # (AUTO) 8.2 (2.1-6.9); NEUTROPHILS % 78.9 % (38.7-80.0); PLATELET COUNT 266 x10e3/uL (140-360); RED CELL DISTRIBUTION WIDTH 18.8 % (11.7-14.4)
[2020-03-11 05:35] LABS: ALBUMIN 3.6 g/dL (3.5-5.0); ALBUMIN/GLOBULIN RATIO 1.1 (0.8-2.0); ANION GAP 14.9 mmol/L (8-16); CALCIUM 9.3 mg/dL (8.4-10.2); CREATININE, SERUM 1.53 mg/dL (0.57-1.11); MAGNESIUM 1.4 MG/DL (1.3-2.1); POTASSIUM 3.9 mmol/L (3.5-5.1)
[2020-03-11] MEDS: SOTALOL HCL 80 MG TAB PO SCH ×2 (08:40→16:36)
[2020-03-11] MEDS: RIVAROXABAN 20 MG TABLET PO SCH (08:40)
[2020-03-11] MEDS: IRON SUCROSE 100 MG in SODIUM CHLORIDE 0.9% 100 ML 100 ML IV SCH (09:40)
[2020-03-11] MEDS ORDERED: ROPINIROLE HCL 2 MG TAB PO SCH (16:30)
[2020-03-11] MEDS: ROPINIROLE HCL 1 MG TAB PO SCH (21:18)
[2020-03-12] VITALS (8 sets, daily range): BP systolic 91–111; BP diastolic 57–70
[2020-03-12] MEDS ORDERED: DIPHENOXYLATE/ATROPINE TAB PO ONE
--- NOTE | 2020-03-12 | NUR ---
MD Cristina CHU IN TO SEE PATIENT. ORDERS RECEIVED AND IMPLEMENTED.
--- NOTE | 2020-03-12 00:30 | NUR ---
STRAIT CATH'D PATIENT PER ORDERS. PATIENT REPORTED NOT FEELING LIKE SHE NEEDED TO URINATE. 1500ML OF DARK, TEA COLORED URINE NOTED. WILL CONTINUE TO BLADDER SCAN PATIENT PERIODICALLY AND INFORM MD IF PATIENT CONTINUES TO RETAIN URINE.
[2020-03-12 00:42] LABS: BILIRUBIN,URINE SMALL (NEGATIVE); CLARITY,URINE SL CLOUDY (CLEAR); COLOR,URINE AMBER (YELLOW); KETONES,URINE NEGATIVE (NEGATIVE); LEUKOCYTE ESTERASE ,URINE NEGATIVE (NEGATIVE); NITRITE,URINE NEGATIVE (NEGATIVE); PROTEIN,URINE DIPSTICK NEGATIVE (NEGATIVE); URINE UROBILINOGEN 0.2 mg/dL (0.2 - 1)
[2020-03-12 00:48] LABS: AMORPHOUS SEDIMENT,URINE FEW (FEW); BACTERIA,URINE FEW /HPF; EPITHELIAL CELLS,URINE FEW /LPF; WBC,URINE (MAN) 0-5 /HPF (0-5)
[2020-03-12 00:49] LABS: RBC,URINE 21-50 /HPF (0-5)
[2020-03-12] MEDS: METRONIDAZOLE 500MG/NS 100ML 100 ML IV SCH ×4 (00:53→17:19)
[2020-03-12 04:57] LABS: BASOPHILS # (AUTO) 0.1 (0.0-0.1); BASOPHILS % 0.7 % (0.0-1.0); EOSINOPHILS # (AUTO) 0.1 (0.0-0.4); EOSINOPHILS % 0.9 % (0.0-6.0); HEMOGLOBIN 8.4 g/dL (12.0-16.0); LYMPHOCYTES # (AUTO) 1.4 (1.0-3.2); MEAN CORPUSCULAR HEMOGLOBIN 28.2 pg (28-32); MEAN CORPUSCULAR HGB CONC 31.1 g/dL (31-35); MEAN CORPUSCULAR VOLUME 90.6 fL (81-99); MONOCYTES # (AUTO) 0.7 (0.2-0.8); MONOCYTES % 7.2 % (4.4-11.3); NEUTROPHILS # (AUTO) 7.4 (2.1-6.9); NEUTROPHILS % 74.6 % (38.7-80.0); PLATELET COUNT 250 x10e3/uL (140-360); RED BLOOD COUNT 2.98 x10e6/uL (3.6-5.1)
[2020-03-12 05:19] LABS: ALBUMIN 3.7 g/dL (3.5-5.0); ALBUMIN/GLOBULIN RATIO 1.2 (0.8-2.0); ANION GAP 15.6 mmol/L (8-16); CALCIUM 9.2 mg/dL (8.4-10.2); CREATININE, SERUM 1.54 mg/dL (0.57-1.11); MAGNESIUM 1.5 MG/DL (1.3-2.1); POTASSIUM 3.6 mmol/L (3.5-5.1)
[2020-03-12] MEDS: DICYCLOMINE HCL 20 MG TAB PO SCH ×4 (06:38→23:37)
[2020-03-12] MEDS: ACETAMINOPHEN 325 MG TAB PO PRN ×3 (06:38→20:22)
[2020-03-12] MEDS: VANCOMYCIN 250MG/5ML ORAL SOLN PO SCH ×4 (06:38→23:37)
--- NOTE | 2020-03-12 07:05 | NUR ---
RCD PT AT BED PT IS ALERT AND ORIENTED RESTING ON BED IV PATENT BY SALINE FLSH BED LOW AND LOCKED CALL LIGHT IN REACH
[2020-03-12] MEDS: IRON SUCROSE 100 MG in SODIUM CHLORIDE 0.9% 100 ML 100 ML IV SCH (08:00)
[2020-03-12] MEDS: RIVAROXABAN 20 MG TABLET PO SCH (09:00)
[2020-03-12] MEDS: SOTALOL HCL 80 MG TAB PO SCH ×2 (09:00→16:24)
--- NOTE | 2020-03-12 09:53 | NUR ---
Updated clinicals faxed to [facility].
--- NOTE | 2020-03-12 18:41 | NUR ---
PT RESTING ON BED BED SIDE REPORT GIVEN TO ONCOMING NURSE
[2020-03-12] MEDS: ROPINIROLE HCL 1 MG TAB PO SCH (20:21)
[2020-03-12] MEDS ORDERED: SODIUM CHLORIDE 0.9% 250ML 250 ML ONE (23:55)
[2020-03-13] VITALS (8 sets, daily range): BP systolic 99–140; BP diastolic 60–70
[2020-03-13] MEDS: METRONIDAZOLE 500MG/NS 100ML 100 ML IV SCH ×4 (01:53→17:59)
--- NOTE | 2020-03-13 01:53 | NUR ---
BP IMPROVED 101/58 [facility].
[2020-03-13] MEDS: ALPRAZOLAM 0.25 MG TAB PO PRN ×2 (02:00→13:09)
[2020-03-13] MEDS: DICYCLOMINE HCL 20 MG TAB PO SCH ×3 (06:26→18:00)
[2020-03-13] MEDS: VANCOMYCIN 250MG/5ML ORAL SOLN PO SCH ×3 (06:26→17:59)
--- NOTE | 2020-03-13 07:00 | NUR ---
RCD PT AT BED PT IS ALERT AND ORIENTED RESTING ON BED IV PATENT BY SALINE FLUSH BED LOW AND LOCKED CALL LIGHT IN REACH
[2020-03-13] MEDS: IRON SUCROSE 100 MG in SODIUM CHLORIDE 0.9% 100 ML 100 ML IV SCH (08:00)
[2020-03-13] MEDS: SOTALOL HCL 80 MG TAB PO SCH ×2 (09:00→16:50)
[2020-03-13] MEDS: ACETAMINOPHEN 325 MG TAB PO PRN (10:15)
--- NOTE | 2020-03-13 12:14 | NUR ---
Spoke w/ [facility] liaison, Nenita De La Garzapton [phone]. She stated insurance denied acute rehab. CM will notify Dr. Melchor and patient
--- NOTE | 2020-03-13 12:28 | NUR ---
Notified Dr. Lund that insurance denied acute rehab. Received SNF eval order.
--- NOTE | 2020-03-13 16:03 | NUR ---
PT HAVE SKIN EXCORIATION OF SKIN IN THE PERINEAL AREA SHE REQUESTED NEOSPORIN BRYON PAGED AND NOTIFIED DR TRIPLETT GOT THE ORDERS
[2020-03-13] MEDS: NYSTATIN 15 GM POWDER UD BTL TOP SCH (17:00)
--- NOTE | 2020-03-13 18:46 | NUR ---
PT RESTING ON BED BED SIDE REPORT GIVEN TO ONCOMING NURSE
[2020-03-13] MEDS: ROPINIROLE HCL 1 MG TAB PO SCH (20:27)
[2020-03-14] VITALS (7 sets, daily range): BP systolic 108–116; BP diastolic 60–66
[2020-03-14] MEDS: ACETAMINOPHEN 325 MG TAB PO PRN ×3 (00:03→21:19)
[2020-03-14] MEDS: ALPRAZOLAM 0.25 MG TAB PO PRN ×3 (00:03→23:40)
[2020-03-14] MEDS: DICYCLOMINE HCL 20 MG TAB PO SCH ×5 (00:03→23:40)
[2020-03-14] MEDS: METRONIDAZOLE 500MG/NS 100ML 100 ML IV SCH ×5 (00:03→23:39)
[2020-03-14] MEDS: VANCOMYCIN 250MG/5ML ORAL SOLN PO SCH ×5 (00:03→23:40)
[2020-03-14] MEDS ORDERED: CHOLESTYRAMINE 4 GM PACKET PO SCH ×2 (00:15→09:00)
--- NOTE | 2020-03-14 00:23 | NUR ---
bladder distended, bladder scan greater than 999 ml, 16 fr grimaldo catheter inserted. 1300ml removed.
[2020-03-14 05:36] LABS: BASOPHILS % 0.4 % (0.0-1.0); EOSINOPHILS % 0.3 % (0.0-6.0); HEMATOCRIT 26.5 % (34.2-44.1); HEMOGLOBIN 8.3 g/dL (12.0-16.0); LYMPHOCYTES # (AUTO) 1.3 (1.0-3.2); LYMPHOCYTES % 12.1 % (18.0-39.1); MEAN CORPUSCULAR HEMOGLOBIN 28.7 pg (28-32); MEAN CORPUSCULAR HGB CONC 31.3 g/dL (31-35); MEAN CORPUSCULAR VOLUME 91.7 fL (81-99); MONOCYTES # (AUTO) 0.8 (0.2-0.8); MONOCYTES % 7.4 % (4.4-11.3); PLATELET COUNT 252 x10e3/uL (140-360); RED BLOOD COUNT 2.89 x10e6/uL (3.6-5.1)
[2020-03-14 06:12] LABS: ALBUMIN 3.2 g/dL (3.5-5.0); ANION GAP 14.3 mmol/L (8-16); CALCIUM 8.8 mg/dL (8.4-10.2); CREATININE, SERUM 1.25 mg/dL (0.57-1.11); MAGNESIUM 1.4 MG/DL (1.3-2.1); POTASSIUM 3.3 mmol/L (3.5-5.1)
[2020-03-14] MEDS ORDERED: POTASSIUM CHLORIDE 20 MEQ TAB CR PO STA (06:37)
--- NOTE | 2020-03-14 07:05 | NUR ---
RCD PT AT BED PT IS ALERT AND ORIENTED RESTING ON BED IV PATENT BY SALINE FLSH BED LOW AND LOCKED CALL LIGHT IN REACH
[2020-03-14] MEDS: IRON SUCROSE 100 MG in SODIUM CHLORIDE 0.9% 100 ML 100 ML IV SCH (08:00)
[2020-03-14] MEDS: NYSTATIN 15 GM POWDER UD BTL TOP SCH ×2 (09:00→16:55)
[2020-03-14] MEDS: SOTALOL HCL 80 MG TAB PO SCH ×2 (09:00→16:55)
--- NOTE | 2020-03-14 11:36 | NUR ---
Nutrition Screen Note RD Recommendation for Physician: -Continue diet as ordered Plan of Care: RD following, monitoring for tolerance and adequacy Nutrition reason for involvement: LOS Primary Diagnose(s): C diff colitis PMH: hypertension, congestive heart failure, atrial fibrillation, chronic migraines, depression, chronic low back pain, hyperlipidemia, irritable bowel syndrome Ht: 68in Wt: 185lb BMI: 28.1kg/m2 IBW: 140lb+/- 10% RD Assessment: (03/14) Chart reviewed. Labs and meds reviewed. 80yo F, who was admitted for C diff. Diarrhea has improved. Visited pt in the room. Pt reported fair appetite with 75-100% meal intake recorded. No complains of nausea or vomiting. Pt denied any chewing or swallowing difficulty. Weight has been stable ~185lb. SNF pending. Current Diet: GI soft Malnutrition Evaluation (03/14/2020) The patient does not meet criteria for a specified degree of malnutrition at this time. Will re-evaluate at follow-up as appropriate. Diet Education Needs Assessment: Diet education indicated, briefly discussed GI soft diet with pt. Pt verbalized understanding. All questions have been answered. Nutrition Care Level: low Signed: Daphney Kasper, MS, RD, LD
--- NOTE | 2020-03-14 18:39 | NUR ---
PT RESTING ON BED BED SIDE REPORT GIVEN TO ONCOMING NURSE
[2020-03-14] MEDS: ROPINIROLE HCL 1 MG TAB PO SCH (21:19)
[2020-03-15] VITALS: BP 107/55
[2020-03-15 04:00] VITALS: BP 120/61
[2020-03-15] MEDS: DICYCLOMINE HCL 20 MG TAB PO SCH ×3 (05:55→17:04)
[2020-03-15] MEDS: VANCOMYCIN 250MG/5ML ORAL SOLN PO SCH ×3 (05:55→17:04)
[2020-03-15] MEDS: METRONIDAZOLE 500MG/NS 100ML 100 ML IV SCH ×3 (05:55→17:04)
[2020-03-15 07:40] VITALS: BP 114/61
[2020-03-15 08:01] VITALS: BP 114/61
--- NOTE | 2020-03-15 08:15 | NUR ---
CALLED DAUGHTER NYASIA [phone] DISCUSSED THE DENIAL FOR [facility] AND GAVE FACILITIES IN NETWORK. SHE STATES HAD FAMILY AT [facility] AND DOES NOT WANT TO GO THERE, SHE WILL CALL HER MOTHER AND BROTHER AND CALL BACK WITH CHOICE.
[2020-03-15] MEDS: NYSTATIN 15 GM POWDER UD BTL TOP SCH ×2 (09:00→17:04)
[2020-03-15] MEDS: SOTALOL HCL 80 MG TAB PO SCH ×2 (09:07→17:04)
[2020-03-15] MEDS: CHOLESTYRAMINE 4 GM PACKET PO SCH ×2 (09:07→17:04)
[2020-03-15 11:12] VITALS: BP 111/65
--- NOTE | 2020-03-15 12:33 | NUR ---
SPOKE WITH DAUGHTER NYASIA [phone] SHE STATES TO GO AHEAD WITH [facility], WILL FILE CHOICE IN CHART AND FAX CLINICALS PAS[facility] AND COVID FORM TO FACILITY.
[2020-03-15] MEDS: ACETAMINOPHEN 325 MG TAB PO PRN (13:17)
[2020-03-15] MEDS ORDERED: ROPINIROLE HCL 2 MG TAB PO ONE (14:00)
[2020-03-15 15:17] VITALS: BP 109/69
--- NOTE | 2020-03-15 15:31 | NUR ---
LONGTERM FACILITY DISCHARGE INFORMATION PATIENT HAS BEEN ACCEPTED TO: [facility] [address] [place] [address] ACCEPTING WASH BOX OPERATOR: Rupert Stallworth ACCEPTING MD: Dr. Melchor ROOM: 103 NURSE CALL REPORT TO: [phone] IMM SIGNED AND OBTAINED (if applicable): IMM THE FOLLOWING DOCUMENTS MUST ACCOMPANY PATIENT FOR TRANSFER: copy of chart, transfer MAR COPIED CHART: clinical unit coordinator RTF: completed and at nurses station with packet [id number] DNR: n/a Reena, RN notified of acceptance. CM updated pt at bedside and called pt's daughter Vikki and updated her as well.
--- NOTE | 2020-03-15 17:52 | NUR ---
Report called to FREEMAN Malcolm at [facility]. Patient will be transferred to room 103.
== END 2020-03-15 18:50 | DRG 372 ==
LOC: ER 13:25 → ERHOLD 16:00 → MED/SURG2 18:51 → OBSVTOIN 03-06 11:50
PROVIDERS: ADMIT Family Medicine; ATTEND Family Medicine
DX: A04.72 Enterocolitis due to Clostridium difficile, not specified as recurrent (principal); N17.9 Acute kidney failure, unspecified; I13.0 Hypertensive heart and chronic kidney disease with heart failure and stage 1 through stage 4 chronic kidney disease, or unspecified chronic kidney disease; Z11.59 Encounter for screening for other viral diseases; E78.5 Hyperlipidemia, unspecified; F41.9 Anxiety disorder, unspecified; I50.9 Heart failure, unspecified; I48.91 Unspecified atrial fibrillation; Z79.01 Long term (current) use of anticoagulants; F32.9 Major depressive disorder, single episode, unspecified; Z95.810 Presence of automatic (implantable) cardiac defibrillator; M54.12 Radiculopathy, cervical region; E87.5 Hyperkalemia; N18.3 Chronic kidney disease, stage 3 (moderate); D64.9 Anemia, unspecified
CPT/HCPCS: 36415; 36600; 71045; 72125; 74176; 80053; 81001; 82550; 82553; 82607; 82728; 82746; 82805; 83540; 83605; 83690; 83735; 84466; 84484; 85025; 85045; 87040; 87045; 87071; 87086; 87205; 87493; 93005; 97139; 99285; G0378; J1756; J2543; J7030; J7050; P9047; U0002